=== PATIENT | male | born 1990 | race Caucasian/White ===

== ENCOUNTER 2021-09-15 20:18 | Emergency (ER) | payer SELFPAY ==
[~2021-09-15] VITALS: Ht 167.6 cm; Wt 69.0 kg
[2021-09-15] MEDS ORDERED: ONDANSETRON HCL 4MG/2ML INJ IV ONE (21:00)
[2021-09-15 21:09] LABS: BASOPHILS % 0.9 % (0.0-2.0); EOSINOPHILS % 1.5 % (0.0-5.0); HEMATOCRIT. 42.2 % (42.0-52.0); HEMOGLOBIN. 14.3 g/dL (14.0-18.0); MEAN CORPUSCULAR HEMOGLOBIN 30.8 pg (28.0-32.0); MEAN CORPUSCULAR VOLUME 90.7 fL (80.0-94.0); MEAN PLATELET VOLUME 7.5 fl (7.4-10.4); MONOCYTES % 8.4 % (2.0-8.0); NEUTROPHILS % 64.2 % (40.0-76.0); PLATELET 290 x1000/uL (130-400); RED BLOOD CELL COUNT 4.65 mill/uL (4.7-6.1); RED CELL DISTRIBUTION WIDTH 14.2 % (11.6-14.6)
[2021-09-15 21:15] LABS: CHLORIDE 106 mEq/L (98-107)
[2021-09-15 21:19] LABS: ETHANOL BLOOD 110 mg/dL
[2021-09-15] MEDS ORDERED: NALO4SPR BOTHNSTRLS (23:58)
[2021-09-16 00:30] VITALS: BP 115/64
== END 2021-09-16 00:50 | disposition home or self-care (01) ==
LOC: ER 20:18
DX: T51.0X1A Toxic effect of ethanol, accidental (unintentional), initial encounter (principal); Y92.89 Other specified places as the place of occurrence of the external cause; R53.1 Weakness; R42 Dizziness and giddiness
CPT/HCPCS: 36415; 80053; 80307; 80320; 80329; 85025; 96374; 99283; J2405; G0480